=== PATIENT | female | born 1985 | race Caucasian/White ===

== ENCOUNTER → 2018-07-04 09:35 | Outpatient (CLI) | payer OTHER, SELFPAY ==
[2018-07-04 11:30] LABS: Vitamin D,25 Hydroxy 22.8 ng/mL (29.95-100.01)
[2018-07-07 10:01] LABS: HPV HC, High Risk Negative (Negative)
== END ==
PROVIDERS: Visit Provider Obstetrics & Gynecology
DX: Z12.4 Encounter for screening for malignant neoplasm of cervix (principal); E55.9 Vitamin D deficiency, unspecified
CPT/HCPCS: 36415; 82306; 87624; 88175; G0145

== ENCOUNTER → 2021-01-22 | Outpatient (CLI) | payer OTHER, SELFPAY ==
[2021-01-27 20:19] LABS: HPV Reflexed? NOT INDICATED
== END | disposition home or self-care (01) ==
LOC: LABSPEC 13:53
PROVIDERS: Visit Provider Obstetrics & Gynecology
DX: Z12.4 Encounter for screening for malignant neoplasm of cervix (principal)
CPT/HCPCS: 88175; G0145